=== PATIENT | male | born 1970 | race Caucasian/White ===

== ENCOUNTER 2017-04-05 15:31 | Emergency (ER) | payer OTHER ==
[2017-04-05 16:13] LABS: BASOPHIL 0.7 % (0-2.0); EOSINOPHIL 2.4 % (0-4.5); MCH 29.4 pg (25.7-33.7); MEAN CELL VOLUME 86.6 fl (80-96); MEAN PLT VOLUME 9.8 fl (7.5-11.1); PLATELET COUNT 173 K/MM3 (134-434); RDW 13.5 % (11.9-15.9); WHITE BLOOD COUNT 5.7 K/mm3 (4.0-10.0)
--- NOTE | 2017-04-05 16:14 | PDOC ---
History of Present Illness - General Chief Complaint: Seizure Stated Complaint: SEIZURE Time Seen by Provider: 04/05/17 15:48 History Source: Patient Exam Limitations: No Limitations - History of Present Illness Initial Comments: 04/05/17 16:05 Patient is a 47M with a history of seizures here today complaining of a witnessed seizure. His family member states that he started shaking while watching tv. Convulsions lasted for about 40-60 seconds. Patient was placed on his side, and symptoms subsided. The family member states that he was confused for a short period afterwards, but is now back to his baseline. Patient states that he last had a seizure about 6 months ago, and that he's had about 10 seizures in the past. He stopped taking dilantin about 5 months ago. He states that he has been drinking. He denies nausea, vomiting, fevers and chills. He denies chest pain, shortness of breath and abdominal pain. Past History - Past Medical History Allergies/Adverse Reactions: Allergies Allergy/AdvReac Type Severity Reaction Status Date / Time No Known Allergies Allergy Verified 04/05/17 15:33 Home Medications: Ambulatory Orders Phenytoin Na Extended [Dilantin -] 0 mg PO MONTHLY 04/05/17 Phenytoin Na Extended [Dilantin -] 100 mg PO TID #21 capsule 04/05/17 Review of Systems - Review of Systems Comments:: 04/05/17 16:14 GENERAL/CONSTITUTIONAL: No fever or chills. No weakness. HEAD, EYES, EARS, NOSE AND THROAT: No change in vision. No sore throat. CARDIOVASCULAR: No chest pain or shortness of breath RESPIRATORY: No cough, wheezing, or hemoptysis. GASTROINTESTINAL: No nausea, vomiting, diarrhea or constipation. GENITOURINARY: No dysuria, frequency, or change in urination. MUSCULOSKELETAL: No joint or muscle swelling or pain. No neck or back pain. SKIN: No rash NEUROLOGIC: Positive for headache and loss of consciousness. Negative for vertigo, change in strength/sensation. ENDOCRINE: No increased thirst. No abnormal weight change HEMATOLOGIC/LYMPHATIC: No anemia, easy bleeding, or history of blood clots. ALLERGIC/IMMUNOLOGIC: No hives or skin allergy. *Physical Exam - Physical Exam Comments: 04/05/17 16:16 GENERAL: Awake, alert, and fully oriented, in no acute distress, urinated self HEAD: Abrasion to right side of lower lip, normocephalic, atraumatic EYES: PERRLA, EOMI, sclera anicteric, conjunctiva clear ENT: Auricles normal inspection, hearing grossly normal, nares patent, oropharynx clear without exudates. Moist mucosa NECK: Normal ROM, supple, no lymphadenopathy, JVD, or masses LUNGS: No distress, speaks full sentences, clear to auscultation bilaterally HEART: Regular rate and rhythm, normal S1 and S2, no murmurs, rubs or gallops, peripheral pulses normal and equal bilaterally. ABDOMEN: Soft, nontender, normoactive bowel sounds. No guarding, no rebound. No masses EXTREMITIES: Normal inspection, Normal range of motion, no edema. No clubbing or cyanosis. NEUROLOGICAL: Cranial nerves II through XII grossly intact. Normal speech, no focal sensorimotor deficits SKIN: Warm, Dry, normal turgor, no rashes or lesions noted. ED Treatment Course - LABORATORY CBC & Chemistry Diagram: 04/05/17 16:00 04/05/17 16:00 - RADIOLOGY Radiology Studies Ordered: Category Date Time Status HEAD CT WITHOUT CONTRAST [CT] Stat CT Scan 04/05/17 15:57 Ordered CHEST X-RAY PORTABLE* [RAD] Stat Radiology 04/05/17 15:56 Ordered Medical Decision Making - Medical Decision Making 04/05/17 16:17 47M with history of seizures here today complaining of seizures. Vital signs stable; back to baseline. History and exam is very consistent with seizure, suspect most likely due to patient non-compliance with medication. Patient has never been to [facility] before, so will do full workup to rule out metabolic derangement, mass, cardiac etiology, etc. 04/05/17 16:30 EKG shows normal sinus rhythm, rate = 96. Normal axis. No st elevations/ depressions. T wave inversion in III, otherwise normal. RSR' pattern in v1 and v2, QRS = 98, incomplete RBBB. 04/05/17 17:42 Laboratory Tests 04/05/17 04/05/17 04/05/17 16:00 16:00 16:00 WBC 5.7 Hgb 15.5 Hct 45.7 Plt Count 173 INR 0.97 Lactic Acid Troponin I < 0.02 Urine WBC Alcohol, Quantitative 04/05/17 04/05/17 04/05/17 16:00 16:00 16:14 WBC Hgb Hct Plt Count INR Lactic Acid 5.3 H* Troponin I Urine WBC 1 Alcohol, Quantitative < 5.0 CBC normal, lactate 5.3, alcohol negative, tox screen negative, trop negative. 04/05/17 18:15 Laboratory Tests 04/05/17 16:00 Phenytoin < 2.5 L Patient loaded with fosphenytoin. 04/05/17 18:47 At patient's direction, called [facility] in attempt to find his home dose of phenytoin. Neither pharmacy have a record of him as a patient. Patient is attempting to find an old bottle at home. 04/05/17 19:08 Seizure precautions given. Patient verbalized understanding of the importance of taking medication. *DC/Admit/Observation/Transfer Diagnosis at time of Disposition: Seizure - Discharge Dispostion Disposition: HOME Condition at time of disposition: Good Admit: No - Prescriptions Prescriptions: Phenytoin Na Extended [Dilantin -] 100 mg PO TID #21 capsule - Patient Instructions Printed Discharge Instructions: DI for Seizure Disorder -- Adult Additional Instructions: Please follow up with the Neurologist Dr Brooks [phone]. He is located across the street from [facility]. You have been given 7 days of Dilantin. You were only given 7 days because your Dilantin level checked and have your dose adjusted. You need to call to make your appointment tomorrow morning.
--- NOTE | 2017-04-05 16:19 | PDOC ---
Attending Attestation - Resident Resident Name: BrynfelicitaTrae - ED Attending Attestation I have performed the following: I have examined & evaluated the patient, The case was reviewed & discussed with the resident, I agree w/resident's findings & plan, Exceptions are as noted - HPI HPI: 47 yo M history seizure disorder (off his dilantin for past month) presents with seizure. He states he was sitting at home watching TV when it happened. He states he has seizures infrequently. He was diagnosed 15 years ago. He recently had a change in his insurance and does not currently have a neurologist. He does not know his dose of dilantin. Denies any recent sleep deprivation, fever, illness. He states he was out drinking with friends last night. He does not drink daily and has never had withdrawal. - Physicial Exam PE: GENERAL: Awake, alert, and fully oriented, in no acute distress HEAD: No signs of trauma EYES: PERRLA, EOMI, sclera anicteric, conjunctiva clear ENT: Auricles normal inspection, hearing grossly normal, nares patent, oropharynx clear without exudates. Moist mucosa. Small abrasion to the R lower lip, as well as the mucosal surface of the lower lip, right side. No active bleeding. NECK: Normal ROM, supple, no lymphadenopathy, JVD, or masses LUNGS: Breath sounds equal, clear to auscultation bilaterally. No wheezes, and no crackles HEART: Regular rate and rhythm, normal S1 and S2, no murmurs, rubs or gallops ABDOMEN: Soft, nontender, normoactive bowel sounds. No guarding, no rebound. No masses EXTREMITIES: Normal range of motion, no edema. No clubbing or cyanosis. No cords, erythema, or tenderness NEUROLOGICAL: Cranial nerves II through XII grossly intact. Normal speech, normal gait SKIN: Warm, Dry, normal turgor, no rashes or lesions noted. - Medical Decision Making Pt with prior history of seizures, recently off dilantin presenting with seizure. Patient appears to have poor insight into his illness, as he states that he does not have seizures all that often, does not think that medication is necessary. We discussed risks of having seizures in terms of head and facial injuries. Must take medications. Will give him a list of neurologists for f/u.
[2017-04-05 16:23] VITALS: BP 113/75; PULSE 102; TEMP 98.6; BMI 32.9
[2017-04-05] MEDS ORDERED: FOSPHENYTOIN SODIUM 500 MG/10 ML IVPB ONE (16:30)
[2017-04-05 16:34] LABS: INR 0.97 (0.82-1.09); PROTHROMBIN TIME (PATIENT) 10.7 SEC (9.98-11.88)
[2017-04-05 16:42] LABS: ALCOHOL < 5.0 mg/dl (0-5)
[2017-04-05 16:52] LABS: URINE APPEARANCE CLEAR; URINE BILIRUBIN NEGATIVE (NEGATIVE); URINE BLOOD 2+ (NEGATIVE); URINE COLOR LTYELLOW; URINE GLUCOSE (UA) NEGATIVE (NEGATIVE); URINE KETONE NEGATIVE (NEGATIVE); URINE NITRITE NEGATIVE (NEGATIVE); URINE UROBILINOGEN NEGATIVE mg/dL (0.2-1.0)
[2017-04-05 16:58] LABS: URINE PROTEIN 1+ (NEGATIVE)
[2017-04-05 17:01] LABS: URINE MARIJUANA THC NEGATIVE ng/ml (CUTOFF=50)
[2017-04-05 17:01] LABS: ALBUMIN 3.9 g/dl (3.4-5.0); ANION GAP 11 (8-16); BILIRUBIN,TOTAL 0.4 mg/dL (0.2-1.0); CALCIUM 8.6 mg/dL (8.5-10.1); CO2 23 mmol/L (21-32); GLUCOSE,RANDOM 92 mg/dL (74-106); SGOT/AST 15 U/L (15-37); SGPT/ALT 26 U/L (12-78); TOT PROT 7.3 g/dl (6.4-8.2)
[2017-04-05 17:03] LABS: GRANULAR CASTS 4 /lpf; URINE BACTERIA FEW /hpf (NONE SEEN); URINE MUCUS RARE; URINE RBC <1 /hpf (0-3); URINE WBC 1 /hpf (3-5)
[2017-04-05 17:04] LABS: ALK PHOS 81 U/L (45-117); CPK 193 IU/L (39-308); TROPONIN I < 0.02 ng/ml (0.00-0.05)
[2017-04-05 19:13] LABS: URINE LEUK ESTERASE Negative (NEGATIVE)
--- NOTE | 2017-04-06 12:42 | EKG ---
Test Reason : Blood Pressure : / mmHG Vent. Rate : 096 BPM Atrial Rate : 096 BPM P-R Int : 152 ms QRS Dur : 098 ms QT Int : 352 ms P-R-T Axes : 040 020 010 degrees QTc Int : 444 ms NORMAL SINUS RHYTHM INCOMPLETE RIGHT BUNDLE BRANCH BLOCK BORDERLINE ECG NO PREVIOUS ECGS AVAILABLE Confirmed by RADHA HUDDLESTON, ANDREW ([id number]) on 04/06/2017 12:42:41 PM Referred By: Confirmed By:ANDREW GARCIA MD
== END 2017-04-05 20:47 | disposition home or self-care (01) ==
LOC: JER 15:31
PROC: 3E033GC Introduction of Other Therapeutic Substance into Peripheral Vein, Percutaneous Approach (ICD-10-PCS; principal; 2017-04-05)
DX: G40.009 Localization-related (focal) (partial) idiopathic epilepsy and epileptic syndromes with seizures of localized onset, not intractable, without status epilepticus (principal)
CPT/HCPCS: 36415; 70450-TC; 71010-TC; 80053; 80185; 80307; 81003; 81015; 82553; 83605; 84484; 85025; 85610; 93005; 93010; 99284-25

== ENCOUNTER 2017-04-13 12:15 | Emergency (ER) | payer OTHER ==
--- NOTE | 2017-04-13 12:29 | PDOC ---
History of Present Illness - General Stated Complaint: SEIZURE Time Seen by Provider: 04/13/17 12:24 History Source: Patient Exam Limitations: No Limitations - History of Present Illness Initial Comments: 04/13/17 12:48 47 y.o. M with pmh of seizures presents after a witnessed seizure at work today. 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 Patient had a preceding headache and was caught by co- workers prior to falling. Patient was laid on the floor and had whole body jerking. Patient bit his tongue during the incident. Patient endorses mild headache and dizziness after the incident. Patient denies fever, chills, chest pain, sob, or any bowel/bladder incontinence. Patient's sugar in the EMS was 150. Patient was seen here 1 week prior and was given a week's worth of dilantin, however patient only has been taking it 1x per day instead of 3x because it was making him tired. Patient has an appointment with Dr. Lujan (Neurology) tomorrow at 3 pm. PSH-denies All-NKDA SH-denies PCP- Dr. Washington Neurology- Dr. Lujan Past History - Past Medical History Allergies/Adverse Reactions: Allergies Allergy/AdvReac Type Severity Reaction Status Date / Time No Known Allergies Allergy Verified 04/05/17 15:33 Home Medications: Ambulatory Orders Phenytoin Na Extended [Dilantin -] 0 mg PO MONTHLY 04/05/17 Phenytoin Na Extended [Dilantin -] 100 mg PO TID #21 capsule 04/05/17 Seizures: Yes - Surgical History Abdominal Surgery: No Appendectomy: No Cardiac Surgery: No Cholecystectomy: No GI Surgery: No Neurologic Surgery: No - Suicide/Smoking/Psychosocial Hx Smoking History: Never smoked Have you smoked in the past 12 months: No Hx Alcohol Use: Yes Drug/Substance Use Hx: No Substance Use Type: Alcohol Review of Systems - Review of Systems Able to Perform ROS?: Yes Comments:: 04/13/17 12:47 GENERAL/CONSTITUTIONAL: No fever or chills. No weakness. +mild headache HEAD, EYES, EARS, NOSE AND THROAT: No change in vision. No ear pain or discharge. No sore throat. CARDIOVASCULAR: No chest pain or shortness of breath RESPIRATORY: No cough, wheezing, or hemoptysis. GASTROINTESTINAL: No nausea, vomiting, diarrhea or constipation. GENITOURINARY: No dysuria, frequency, or change in urination. MUSCULOSKELETAL: No joint or muscle swelling or pain. No neck or back pain. SKIN: No rash NEUROLOGIC: No headache, vertigo, loss of consciousness, or change in strength/ sensation. ENDOCRINE: No increased thirst. No abnormal weight change HEMATOLOGIC/LYMPHATIC: No anemia, easy bleeding, or history of blood clots. ALLERGIC/IMMUNOLOGIC: No hives or skin allergy. *Physical Exam - Vital Signs 04/13/17 12:47 Vital Signs Temp Pulse Resp BP Pulse Ox 98.1 F 96 H 20 129/81 100 04/13/17 12:39 04/13/17 12:39 04/13/17 12:39 04/13/17 12:39 04/13/17 12:39 - Physical Exam Comments: 04/13/17 12:47 GENERAL: Awake, alert, and fully oriented, in no acute distress HEAD: No signs of trauma, normocephalic, atraumatic EYES: PERRLA, EOMI, sclera anicteric, conjunctiva clear ENT: Auricles normal inspection, hearing grossly normal, nares patent, oropharynx clear without exudates. Moist mucosa. Lesion on right lateral aspect of tongue NECK: Normal ROM, supple, no lymphadenopathy, JVD, or masses LUNGS: No distress, speaks full sentences, clear to auscultation bilaterally HEART: Regular rate and rhythm, normal S1 and S2, no murmurs, rubs or gallops, peripheral pulses normal and equal bilaterally. ABDOMEN: Soft, nontender, normoactive bowel sounds. No guarding, no rebound. No masses EXTREMITIES: Normal inspection, Normal range of motion, no edema. No clubbing or cyanosis. NEUROLOGICAL: Cranial nerves II through XII grossly intact. Normal speech, normal gait, no focal sensorimotor deficits. 5/5 strength b/l, sensation intact b/l, cerebellar function intact b/l SKIN: Warm, Dry, normal turgor, no rashes or lesions noted. Medical Decision Making - Medical Decision Making 04/13/17 12:52 47 y.o. M with pmh of seizures presenting s/p seizure. Patient does not take medications as prescribed. Patient has f/u with neurology tomorrow. Plan: Dilantin level, Fosphenytoin loading dose (1g over 20 mins) *DC/Admit/Observation/Transfer Diagnosis at time of Disposition: Seizure - Discharge Dispostion Disposition: HOME Condition at time of disposition: Stable - Referrals Referrals: Ruben Lujan MD [Staff Physician] - - Patient Instructions Printed Discharge Instructions: Seizure Disorder -- Adult Additional Instructions: Take your dilantin 3x per day. Follow up with your neurologist tomorrow at 3pm. If you have a new seizure, chest pain, shortness of breath, or any new/ worsening symptoms please come back to the hospital immediately.
[2017-04-13 12:46] VITALS: BMI 31.6
[2017-04-13] MEDS ORDERED: FOSPHENYTOIN SODIUM 1,000 MG in SODIUM CHLORIDE 100 ML IVPB ONE (13:01)
--- NOTE | 2017-04-13 13:08 | PDOC ---
Attending Attestation - Resident Resident Name: Roland Smithl - ED Attending Attestation I have performed the following: I have examined & evaluated the patient, The case was reviewed & discussed with the resident, I agree w/resident's findings & plan, Exceptions are as noted - HPI HPI: 47 yo M history seizures presents with seizure. He was recently in the ED for the same. He was given a prescription for dilantin, but has only taken it once a day as it makes him feel drowsy. He did not take it today. He had a seizure that was witnessed. Tonic clonic. He bit his tongue. Denies any complaints at present aside from pain to his tongue. - Physicial Exam PE: GENERAL: Awake, alert, and fully oriented, in no acute distress HEAD: No signs of trauma EYES: PERRLA, EOMI, sclera anicteric, conjunctiva clear ENT: Auricles normal inspection, hearing grossly normal, nares patent, oropharynx clear without exudates. Moist mucosa. Tongue with superficial abrasion to the R side, no active bleeding. NECK: Normal ROM, supple, no lymphadenopathy, JVD, or masses LUNGS: Breath sounds equal, clear to auscultation bilaterally. No wheezes, and no crackles HEART: Regular rate and rhythm, normal S1 and S2, no murmurs, rubs or gallops ABDOMEN: Soft, nontender, normoactive bowel sounds. No guarding, no rebound. No masses EXTREMITIES: Normal range of motion, no edema. No clubbing or cyanosis. No cords, erythema, or tenderness NEUROLOGICAL: Cranial nerves II through XII grossly intact. Normal speech, normal gait. Motor and sensation intact. SKIN: Warm, Dry, normal turgor, no rashes or lesions noted. - Medical Decision Making Patient with breakthrough seizure due to med noncompliance. We discussed importance of taking his medication. Will load him with fosphenytoin 1g in ED. He has f/u with Dr. Lujan tomorrow, can discuss poss medication change.
[2017-04-13] MEDS ORDERED: FOSPHENYTOIN SODIUM 100 MG/2 ML VIAL ONE (13:40)
[2017-04-13 14:42] VITALS: BP 118/78; PULSE 78; TEMP 98
== END 2017-04-13 14:46 | disposition home or self-care (01) ==
LOC: JER 12:15
PROC: 3E033GC Introduction of Other Therapeutic Substance into Peripheral Vein, Percutaneous Approach (ICD-10-PCS; principal; 2017-04-13)
DX: G40.909 Epilepsy, unspecified, not intractable, without status epilepticus (principal)
CPT/HCPCS: 36415; 80185; 96365; 99281-25

== ENCOUNTER 2017-06-29 15:10 | Emergency (ER) | payer SELFPAY ==
[2017-06-29 15:17] VITALS: BMI 38.7
--- NOTE | 2017-06-29 15:45 | PDOC ---
Attending Attestation - Resident Resident Name: Walter Stockton - HPI HPI: 06/29/17 17:04 Pt presents to the ED complaining of tonic clonic seizure. PAtient has a known history of seizure disorder for which he is prescribed dilantin. He has been unable to get his dilantin secondary to insurance issues for the last week. Patient felt well before and after the seizure. - Physicial Exam PE: 06/29/17 17:06 Agree with resident exam. Patient was alert and oriented x 3 and neurologically intact. - Medical Decision Making 06/29/17 17:07 Pt presents to the ED after witnessed tonic clonic seizure, likely secondary to dilantin non compliance. Will check labs to rule out infection or electrolyte disturbance, load dilatin if necessary, reassess.
[2017-06-29 16:30] LABS: URINE APPEARANCE CLEAR; URINE BILIRUBIN NEGATIVE (NEGATIVE); URINE BLOOD 1+ (NEGATIVE); URINE COLOR LTYELLOW; URINE GLUCOSE (UA) NEGATIVE (NEGATIVE); URINE KETONE TRACE (NEGATIVE); URINE LEUK ESTERASE NEGATIVE (NEGATIVE); URINE NITRITE NEGATIVE (NEGATIVE); URINE UROBILINOGEN NEGATIVE mg/dL (0.2-1.0)
[2017-06-29 16:34] LABS: BASO % 0.3 % (0-2.0); EOS % 2.5 % (0-4.5); HEMATOCRIT 48.2 % (35.4-49); HEMOGLOBIN 16.2 GM/dL (11.7-16.9); LYMPH % 41.9 % (8-40); MCH 29.3 pg (25.7-33.7); MCHC 33.5 g/dl (32.0-35.9); MEAN CELL VOLUME 87.2 fl (80-96); MEAN PLT VOLUME 10.4 fl (7.5-11.1); MONO % 5.7 % (3.8-10.2); NEUT % 49.6 % (42.8-82.8); PLATELET COUNT 169 K/MM3 (134-434); RBC 5.53 M/mm3 (4.00-5.60); RDW 13.2 % (11.9-15.9); WHITE BLOOD COUNT 7.2 K/mm3 (4.0-10.0)
--- NOTE | 2017-06-29 16:36 | PDOC ---
History of Present Illness - General Chief Complaint: Seizure Stated Complaint: SEIZURE Time Seen by Provider: 06/29/17 15:43 History Source: Patient Exam Limitations: No Limitations - History of Present Illness Initial Comments: 06/29/17 16:32 47M with h/o seizure disorder presents to the ED by ambulance after saw having a seizure while using his phone. His eyes rolled back and he became very stiff and shaking for about 30 seconds, with a period of 2min before he was able to respond to questions appropriately and got back to normal. Urinary incontinence during seizure. Ran out of Phenytoin last week when the family lost insurance. Has an appointment on with neurologist for EEG. Last seizure was 3 months ago. 06/29/17 16:35 Past History - Past Medical History Allergies/Adverse Reactions: Allergies Allergy/AdvReac Type Severity Reaction Status Date / Time No Known Allergies Allergy Verified 04/05/17 15:33 Home Medications: Ambulatory Orders Phenytoin Na Extended [Dilantin -] 100 mg PO TID #21 capsule 04/05/17 COPD: No Seizures: Yes - Surgical History Abdominal Surgery: No Appendectomy: No Cardiac Surgery: No Cholecystectomy: No GI Surgery: No Neurologic Surgery: No - Immunization History Immunization Up to Date: No - Suicide/Smoking/Psychosocial Hx Smoking History: Former smoker Have you smoked in the past 12 months: No Information on smoking cessation initiated: No Hx Alcohol Use: No Drug/Substance Use Hx: No Substance Use Type: Alcohol Review of Systems - Review of Systems Able to Perform ROS?: Yes Constitutional: No: Symptoms Reported HEENTM: No: Symptoms Reported Respiratory: No: Symptoms reported Cardiac (ROS): No: Symptoms Reported ABD/GI: No: Symptoms Reported : No: Symptoms Reported Musculoskeletal: No: Symptoms Reported Integumentary: No: Symptoms Reported Neurological: Yes: Pre-Existing Deficit, Seizure. No: Headache, Numbness, Paresthesia, Tingling, Tremors, Weakness, Unsteady Gait All Other Systems: Reviewed and Negative *Physical Exam - Vital Signs Last Vital Signs Temp Pulse Resp BP Pulse Ox 98.6 F 71 18 134/75 100 06/29/17 15:14 06/29/17 15:26 06/29/17 15:14 06/29/17 15:14 06/29/17 15:26 - Physical Exam General Appearance: Yes: Nourished, Appropriately Dressed. No: Apparent Distress HEENT: positive: EOMI, CARL, Normal ENT Inspection Neck: positive: Trachea midline, Normal Thyroid. negative: Tender Respiratory/Chest: positive: Lungs Clear, Normal Breath Sounds. negative: Chest Tender, Respiratory Distress Cardiovascular: positive: Regular Rhythm, Regular Rate, S1, S2 Vascular Pulses: Dorsalis-Pedis (R): 2+, Doralis-Pedis (L): 2+ Gastrointestinal/Abdominal: positive: Tender, Flat. negative: Normal Bowel Sounds Extremity: positive: Normal Capillary Refill Integumentary: positive: Normal Color, Dry, Warm, Other (Skin tags all over neck and b/l armpits. ) Neurologic: positive: Fully Oriented, Alert, Normal Mood/Affect, Normal Response , Motor Strength 10/31 ED Treatment Course - LABORATORY CBC & Chemistry Diagram: 06/29/17 16:09 06/29/17 16:09 Medical Decision Making - Medical Decision Making 06/29/17 16:38 Basic labs sent. Phenytoin levels pending. EKG pending 06/29/17 20:15 Phenytoin level subtherapeutic. Given 1g fosphenytoin IV. Follow up with appointment on and discharge. 06/29/17 20:19 *DC/Admit/Observation/Transfer Diagnosis at time of Disposition: Seizure - Discharge Dispostion Disposition: HOME Admit: No - Referrals Referrals: Miguel Washington MD [Primary Care Provider] - - Patient Instructions Printed Discharge Instructions: Seizure Disorder -- Adult Additional Instructions: Come back to the Ed for any new, concerning or worsening symptoms Follow up with your appointment on with your Neurologist. - Post Discharge Activity
[2017-06-29 16:41] LABS: URINE PROTEIN 1+ (NEGATIVE)
[2017-06-29 16:43] LABS: URINE BACTERIA RARE /hpf (NONE SEEN); URINE MUCUS RARE
[2017-06-29 16:55] LABS: ALBUMIN 4.1 g/dl (3.4-5.0); ALK PHOS 110 U/L (45-117); ANION GAP 9 (8-16); BILIRUBIN,TOTAL 0.4 mg/dL (0.2-1.0); BLOOD UREA NITROGEN 12 mg/dL (7-18); CALCIUM 7.9 mg/dL (8.5-10.1); CHLORIDE 108 mmol/L (98-107); CO2 25 mmol/L (21-32); GLUCOSE,RANDOM 108 mg/dL (74-106); POTASSIUM 3.9 mmol/L (3.5-5.1); SGOT/AST 17 U/L (15-37); SGPT/ALT 37 U/L (12-78); SODIUM 142 mmol/L (136-145); TOT PROT 7.8 g/dl (6.4-8.2)
[2017-06-29] MEDS ORDERED: PHENYTOIN NA EXTENDED 100 MG CAPSULE (FP) PO ONE (20:13)
[2017-06-29] MEDS ORDERED: FOSPHENYTOIN SODIUM 1,000 MG in SODIUM CHLORIDE 100 ML IVPB ONE (20:18)
[2017-06-29] MEDS ORDERED: FOSPHENYTOIN SODIUM 100 MG/2 ML VIAL ONE (20:23)
[2017-06-29 21:18] VITALS: BP 123/79; PULSE 92; TEMP 98
--- NOTE | 2017-07-01 13:22 | EKG ---
Test Reason : Blood Pressure : / mmHG Vent. Rate : 098 BPM Atrial Rate : 098 BPM P-R Int : 154 ms QRS Dur : 102 ms QT Int : 354 ms P-R-T Axes : 034 011 010 degrees QTc Int : 451 ms NORMAL SINUS RHYTHM INCOMPLETE RIGHT BUNDLE BRANCH BLOCK BORDERLINE ECG WHEN COMPARED WITH ECG OF 05-APR-2017 16:18, NO SIGNIFICANT CHANGE WAS FOUND Confirmed by MELISSA LOPEZ MD ([id number]) on 07/01/2017 1:22:09 PM Referred By: Confirmed By:MELISSA LOPEZ MD
== END 2017-06-29 21:18 | disposition home or self-care (01) ==
LOC: JER 15:10
DX: R56.9 Unspecified convulsions (principal); T42.0X6A Underdosing of hydantoin derivatives, initial encounter; Y92.89 Other specified places as the place of occurrence of the external cause
CPT/HCPCS: 36415; 80053; 80185; 80186; 81003; 81015; 85025; 93005; 93010; 99284-25

== ENCOUNTER 2017-07-05 16:18 | Emergency (ER) | payer SELFPAY ==
[2017-07-05] MEDS ORDERED: PHENYTOIN SODIUM 100 MG/2 ML VIAL IVPB ONE (16:46)
[2017-07-05 16:49] VITALS: TEMP 98.4; BMI 27.4
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
[2017-07-05 17:14] LABS: BASO % 0.5 % (0-2.0); HEMATOCRIT 45.5 % (35.4-49); HEMOGLOBIN 15.7 GM/dL (11.7-16.9); LYMPH % 13.8 % (8-40); MCH 29.4 pg (25.7-33.7); MCHC 34.4 g/dl (32.0-35.9); MEAN CELL VOLUME 85.4 fl (80-96); MEAN PLT VOLUME 9.3 fl (7.5-11.1); MONO % 4.7 % (3.8-10.2); PLATELET COUNT 179 K/MM3 (134-434); RBC 5.32 M/mm3 (4.00-5.60); WHITE BLOOD COUNT 7.9 K/mm3 (4.0-10.0)
[2017-07-05 17:46] LABS: ALBUMIN 3.9 g/dl (3.4-5.0); ALK PHOS 87 U/L (45-117); ANION GAP 9 (8-16); BILIRUBIN,TOTAL 0.2 mg/dL (0.2-1.0); BLOOD UREA NITROGEN 14 mg/dL (7-18); CALCIUM 8.7 mg/dL (8.5-10.1); CHLORIDE 104 mmol/L (98-107); CO2 26 mmol/L (21-32); CREATININE 1.1 mg/dL (0.7-1.3); GLUCOSE,RANDOM 135 mg/dL (74-106); POTASSIUM 3.6 mmol/L (3.5-5.1); SGOT/AST 22 U/L (15-37); SGPT/ALT 46 U/L (12-78); SODIUM 139 mmol/L (136-145); TOT PROT 7.5 g/dl (6.4-8.2)
[2017-07-05] MEDS ORDERED: PHENYTOIN SODIUM INJECTION 1,000 MG in SODIUM CHLORIDE 100 ML IVPB ONE (18:00)
[2017-07-05] MEDS ORDERED: PHENYTOIN NA EXTENDED 100 MG CAPSULE (FP) PO ONE (19:17)
[2017-07-05] MEDS ORDERED: PHENYTOIN NA EXTENDED 100 MG CAPSULE (FP) ONE (19:20)
[2017-07-05 19:56] VITALS: BP 117/70; PULSE 90
== END 2017-07-05 19:56 | disposition home or self-care (01) ==
LOC: JER 16:18
PROC: 3E033GC Introduction of Other Therapeutic Substance into Peripheral Vein, Percutaneous Approach (ICD-10-PCS; principal; 2017-07-05)
DX: G40.909 Epilepsy, unspecified, not intractable, without status epilepticus (principal)
CPT/HCPCS: 36415; 80053; 80185; 85025; 99285-25

== ENCOUNTER 2019-06-12 15:40 | Emergency (ER) | payer OTHER ==
[2019-06-12 15:44] VITALS: BP 139/78; PULSE 81; TEMP 97.9; BMI 28.7
--- NOTE | 2019-06-12 16:34 | PDOC ---
History of Present Illness - General Chief Complaint: Eye Problem Stated Complaint: RT EYE RED Time Seen by Provider: 06/12/19 15:50 History Source: Patient Exam Limitations: No Limitations Past History - Past Medical History Allergies/Adverse Reactions: Allergies Allergy/AdvReac Type Severity Reaction Status Date / Time No Known Allergies Allergy Verified 06/12/19 15:44 Home Medications: Ambulatory Orders Phenytoin Na Extended [Dilantin -] 100 mg PO TID #21 capsule 04/05/17 COPD: No Seizures: Yes - Surgical History Abdominal Surgery: No Appendectomy: No Cardiac Surgery: No Cholecystectomy: No GI Surgery: No Neurologic Surgery: No - Immunization History Immunization Up to Date: No - Psycho Social/Smoking Cessation Hx Smoking History: Never smoked Have you smoked in the past 12 months: No Hx Alcohol Use: No Drug/Substance Use Hx: No Substance Use Type: Alcohol *Physical Exam - Vital Signs Last Vital Signs Temp Pulse Resp BP Pulse Ox 97.9 F 81 18 139/78 97 06/12/19 15:41 06/12/19 15:41 06/12/19 15:41 06/12/19 15:41 06/12/19 15:41 - Physical Exam General Appearance: No: Apparent Distress HEENT: positive: EOMI, CARL, Other (+ R eye subconjunctival hemorrhage, L eye normal; no pain with eye movement, vision 20/20 R eye, 20/20 L eye, 20/20 both eyes; blood in R ear (unable to visualize TM)) Neurologic: positive: Alert Medical Decision Making - Medical Decision Making 49 y/o M with hx of seizures presents with R eye redness x 4 days. Also mentions mild R ear discomfort; mentions uses Q-tip every morning to clean his ear and today, while using Q-tip, noticed some blood in ear. +decreased hearing from R ear. Denies dizziness, n/v, headache, fever, drainage from eyes, blurred vision, eye pain, photophobia. R eye redness - likely subconjunctival hemorrhage R ear discomfort - concern for TM rupture; will refer to ENT 06/12/19 16:29 Discharge - Discharge Information Problems reviewed: Yes Clinical Impression/Diagnosis: Subconjunctival hemorrhage of right eye, Eardrum rupture, right Condition: Stable Disposition: HOME - Admission No - Additional Discharge Information Prescription Drug Monitoring Program (I-STOP) results: I-STOP not reviewed - Follow up/Referral Referrals: Jeancarlos Garcia MD [Staff Physician] - 2 Days - Patient Discharge Instructions Patient Printed Discharge Instructions: DI for Subconjunctival Hemorrhage, DI for Tympanic Membrane Perforation-Adult Additional Instructions: Thank you for choosing [facility]. It was a pleasure taking care of you. The eye redness will resolve on its own Regarding the ear, please avoid using Q-tips in your ear Keep the ear dry When showering, you may put cotton covered with Vaseline in ear You were referred to ENT for further evaluation Return to the Emergency Department if your symptoms worsen or persist or have other concerning symptoms. - Post Discharge Activity
== END 2019-06-12 16:38 | disposition home or self-care (01) ==
LOC: JERFT 15:40
DX: H72.90 Unspecified perforation of tympanic membrane, unspecified ear (principal); H11.30 Conjunctival hemorrhage, unspecified eye
CPT/HCPCS: 99281-25

== ENCOUNTER 2023-06-17 15:49 | Emergency (ER) | payer OTHER ==
[2023-06-17 15:57] VITALS: BP 158/75; PULSE 82; RESP 18; TEMP 97.5; BMI 27.7
[2023-06-17] MEDS ORDERED: CLINDAMYCIN HCL 150 MG CAPSULE (FP) PO ONE (17:31)
[2023-06-17] MEDS ORDERED: ACETAMINOPHEN 325 MG TABLET (FP) PO ONE (17:31)
[2023-06-17] MEDS ORDERED: CLINDAMYCIN HCL 150 MG CAPSULE (FP) ONE (17:48)
[2023-06-17] MEDS ORDERED: ACETAMINOPHEN 325 MG TABLET (FP) ONE (17:49)
== END 2023-06-17 18:15 | disposition home or self-care (01) ==
LOC: JER 15:49
DX: L03.031 Cellulitis of right toe (principal); L08.9 Local infection of the skin and subcutaneous tissue, unspecified
CPT/HCPCS: 99283-25

== ENCOUNTER 2024-07-07 18:50 | Emergency (ER) | payer OTHER ==
[2024-07-07 19:02] VITALS: BP 156/85; PULSE 80; RESP 16; TEMP 97.8; BMI 32.5
[2024-07-07] MEDS ORDERED: AMOX TR/POT CLAV 875MG/125MG TABLETS (FP) ONE (19:49)
[2024-07-07] MEDS ORDERED: DIPHTH,PERTUSS(ACELL),TET 0.5 ML DISP.SYRIN IM ONE (19:49)
[2024-07-07] MEDS: DIPHTH,PERTUSS(ACELL),TET 0.5 ML DISP.SYRIN IM ONE (19:52)
[2024-07-07] MEDS: AMOX TR/POT CLAV 875MG/125MG TABLETS (FP) PO ONE (19:52)
== END 2024-07-07 19:55 | disposition home or self-care (01) ==
LOC: FER 18:50
PROC: 3E0234Z Introduction of Serum, Toxoid and Vaccine into Muscle, Percutaneous Approach (ICD-10-PCS; principal; 2024-07-07)
DX: S80.812A Abrasion, left lower leg, initial encounter (principal); W54.0XXA Bitten by dog, initial encounter; Z23 Encounter for immunization
CPT/HCPCS: 90471; 90715; 99284-25

== ENCOUNTER 2024-12-24 14:35 | Emergency (ER) | payer OTHER ==
[2024-12-24 15:00] VITALS: TEMP 98.7; BMI 31.8
[2024-12-24 15:33] LABS: ABSOLUTE IMMATURE GRANULOCYTES 0.07 x10^3/uL (0.0-0.031); BASOPHILS # 0.03 x10^3/uL (0.01-0.08); EOSINOPHIL % 1.5 % (0.8-7.0); EOSINOPHILS # 0.15 x10^3/uL (0.04-0.54); HEMOGLOBIN 15.9 g/dL (13.7-17.5); MCHC 33.8 g/dl (32.3-36.5); MEAN CELL VOLUME 86.1 fl (79.0-92.2); MEAN PLT VOLUME 11.1 fl (9.4-12.4); MONOCYTE # 0.48 x10^3/uL (0.30-0.82); MONOCYTE % 4.8 % (5.3-12.2); PLATELET COUNT 179 x10^3/uL (163-337); RDW 12.2 % (12.2-16.1)
[2024-12-24] MEDS: SODIUM CHLORIDE 1,000 ML IV STA (15:38)
[2024-12-24 15:47] LABS: INR 0.93 (0.83-1.09); PROTHROMBIN TIME (PATIENT) 10.1 SEC (9.7-13.0)
[2024-12-24 16:01] LABS: POTASSIUM 4.4 mmol/L (3.5-5.1)
[2024-12-24 16:03] LABS: BLOOD UREA NITROGEN 12.3 mg/dL (7-18); CALCIUM 9.4 mg/dL (8.5-10.1); MAGNESIUM 2.5 mg/dL (1.8-2.4)
[2024-12-24 16:06] LABS: CREATININE 1.2 mg/dL (0.55-1.3); PHOSPHOROUS 3.4 mg/dL (2.5-4.9)
[2024-12-24 16:08] LABS: BILIRUBIN,TOTAL 0.6 mg/dL (0.2-1); TOT PROT 7.5 g/dl (6.4-8.2)
[2024-12-24 16:24] LABS: EPI CELLS 4 /uL (0-25.1); HYALINE CASTS 0 /uL (0-3.1); PH,URINE 5.5 (5.0-8.0); URINE APPEARANCE CLEAR; URINE BACTERIA 18 /uL (0-1359); URINE BILIRUBIN NEGATIVE (NEGATIVE); URINE COLOR YELLOW; URINE GLUCOSE (UA) NEGATIVE (NEGATIVE); URINE KETONE TRACE (NEGATIVE); URINE LEUK ESTERASE NEGATIVE (NEGATIVE); URINE NITRITE NEGATIVE (NEGATIVE); URINE PROTEIN 1+ (NEGATIVE); URINE RBC 13 /uL (0-23.9); URINE UROBILINOGEN 0.2 mg/dL (0.2-1.0); URINE WBC 4 /uL (0-25.8)
[2024-12-24 16:53] LABS: LACTIC ACID 2.9 mmol/L (0.4-2.0)
[2024-12-24] MEDS ORDERED: levETIRAcetam 500 MG/5 ML INJECTION VIAL IVPB ONE (18:08)
[2024-12-24] MEDS: levETIRAcetam 500 MG/5 ML INJECTION VIAL IVPB ONE (18:40)
[2024-12-24 19:38] VITALS: BP 130/73; PULSE 79; RESP 21
== END 2024-12-24 20:05 | disposition home or self-care (01) ==
LOC: JER 14:35
PROC: 3E033GC Introduction of Other Therapeutic Substance into Peripheral Vein, Percutaneous Approach (ICD-10-PCS; principal; 2024-12-24)
PROC: 3E0337Z Introduction of Electrolytic and Water Balance Substance into Peripheral Vein, Percutaneous Approach (ICD-10-PCS; 2024-12-24)
DX: G40.909 Epilepsy, unspecified, not intractable, without status epilepticus (principal); R00.0 Tachycardia, unspecified; M79.10 Myalgia, unspecified site; S00.31XA Abrasion of nose, initial encounter; S01.502A Unspecified open wound of oral cavity, initial encounter; W01.198A Fall on same level from slipping, tripping and stumbling with subsequent striking against other object, initial encounter
CPT/HCPCS: 0241U-QW; 36415; 70450-TC; 70486-TC; 71046-TC-FY; 72125-TC; 80053; 81003; 82550; 82553; 82962; 83605; 83735; 84100; 85025; 85610; 85730; 87086; 93005; 93010; 99285-25